=== PATIENT | female | born 1980 | race Caucasian/White ===

== ENCOUNTER 2024-07-11 10:44 | Emergency (ER) | payer OTHER, SELFPAY ==
[2024-07-11 10:47] VITALS: BP 184/117
--- NOTE | 2024-07-11 11:19 | ED.GENMED ---
History of Present Illness
General
Chief Complaint: Blood Pressure Problem
Source: patient
Exam Limitations: none
Time Seen by Provider: 07/11/24 11:08
Nursing documentation reviewed up to this point in time: agreed with
History of Present Illness
History of Present Illness:
Patient is a 44-year-old female brought [facility] and . Patient was taken to snf and her blood pressure was found to be elevated multiple times over 200s and she was sent here to the ER.
Patient presents awake alert she is very anxious she does admit to having a history of anxiety /depression/ high blood pressure and does not like taking medications. She is on Inderal 40 mg twice a day she did take it yesterday. She is very
anxious. She does complain of a headache. She denies any nausea vomiting chest pain/shortness of breath.
She is stating that she does not want anything done for her blood pressure . In addition she does not want any blood work or imaging.
Review of Systems
Review of Systems
Allergies reviewed?: Yes
All Other Systems: ROS reviewed and negative except as documented in HPI and ROS
Constitutional: Reports no symptoms
Respiratory: Reports no symptoms
Cardiac: Reports no symptoms
ABD/GI: Denies abdominal pain, nausea or vomiting
: Reports no symptoms
Musculoskeletal: Reports no symptoms
Skin: Reports no symptoms
Neurological: Reports headache
Endocrine: Reports no symptoms
Psychiatric: Reports no symptoms
Phy Exam
General Physical Exam
General Presentation: no apparent distress
General age: appears stated age
General Skin: warm and dry
General Habitus: normal
General Mental: alert
General Hydration: appears well hydrated
Cardiovascular Exam
Cardiovascular Exam: regular rate/rhythm, no murmur and normal peripheral pulses
Pulmonary Exam
Pulmonary Exam: lungs clear and no respiratory distress
Neurological Exam
Neurological Exam: alert and oriented x3
Musculoskeletal Exam
Musculoskeletal Exam: full ROM
Skin Exam
Skin Exam: normal color and warm/dry
Psychiatric Exam
Psychiatric Exam: normal mood/affect
Course
Orders/Labs/Results
Orders:
Orders
07/11/24 12:20
Propranolol [Inderal] 40 mg PO NOW STA
Vital Signs
Initial and Last Documented VS:
Initial Vital Signs
Temp Pulse Resp BP Pulse Ox
97.7 F 95 20 184/117 100
07/11/24 10:47 07/11/24 10:47 07/11/24 10:47 07/11/24 10:47 07/11/24 10:47
Last Documented Vital Signs
Temp Pulse Resp BP Pulse Ox
97.7 F 87 20 178/116 98
07/11/24 10:47 07/11/24 11:34 07/11/24 10:47 07/11/24 11:34 07/11/24 11:34
Treasury Assistant consulted with Physician
Treasury Assistant consulted with physician?: Yes
Name of Physician Consulted: DR Maldonado
MDM/Problems Addressed
MDM/Problems Addressed:
Patient is a 44-year-old female with history of hypertension noncompliant with her medications brought by [facility]. Patient was arrested and taken into custody and blood pressure was elevated, present would not except her
which is why she was sent to the ER. Patient presents awake alert she does complain of a headache however also reports she is under a lot of stress very anxious has a history of anxiety hypertension and is noncompliant with her Inderal. She
specific Inderal 40 mg twice daily only took it yesterday and takes it sporadically. She presents awake alert no acute distress hypertensive however nontachycardic afebrile.
Patient refusing CAT scan and blood work.
will give dose of oral Inderal now and reassess
1335: Patient has been sleeping comfortably. BP 143/90 HR 100 .
As documented above patient is refusing CAT scan lower however she is in no acute distress and well-appearing she does have a history of hypertension and is noncompliant however improved. I did review with patient the risks of untreated
hypertension including stroke and kidney disease etc. Case d/c w. DR Maldonado, stable for d/c to [facility] .
Chronic conditions affecting care:
htn, anxiety/depression/non compliant w/ meds.
*Critical Care Note
Total Time (30-74mins, 75-104mins- exclusive of procedures): Not Applicable
ED Attending Note
-
Portions of this chart may have been created with voice recognition software.� Occasional wrong word or��sound alike� substitutions may have occurred due to the inherent limitations of voice recognition software.
Discharge Plan
Departure
Patient Disposition: [facility]
Date of Disposition: 07/11/24
Time of Disposition: 13:46
Patient with high blood pressure during this ER visit?: Yes
Condition: Fair
Covid-19: Not Applicable
Discharge Problem:
elevated blood pressure
Instructions: High Blood Pressure (DC), BLOOD PRESSURE
Referrals:
[facility] [Family Provider] -
Activity Restrictions/Additional Instructions:
Patient is medically cleared for incarceration. Patient refused blood work and CAT scan.
Patient was given her Inderal dose 40 mg. Blood pressure 140/90 heart rate 100.
Interventions
Interventions:
*Risk Screen - Suicide Last Done: 07/11/24 10:47
*General Assessment Last Done: 07/11/24 10:47
*Neglect/Abuse Screening Last Done: 07/11/24 10:47
ED- Fall Risk Assessment Last Done: 07/11/24 11:35
*ED COVID-19 Vaccine History Last Done: 07/11/24 11:35
ED- Cardiac Assessment Last Done: 07/11/24 11:35
ED- Neurological Assessment Last Done: 07/11/24 11:35
ED- Pulmonary Assessment Last Done: 07/11/24 11:35
Discharge Date and Time
Print Language: BRITISH
[2024-07-11 11:34] VITALS: BP 178/116
[2024-07-11] MEDS: INDERAL 40 MG PO (14:08)
[2024-07-11 14:17] VITALS: BP 140/88
== END 2024-07-11 14:17 ==
LOC: EMR 10:44
PROVIDERS: EMERGENCY PHYSICIAN Student in an Organized Health Care Education/Training Program
DX: I10 Essential (primary) hypertension (principal); Z91.148 Patient's other noncompliance with medication regimen for other reason; F32.A Depression, unspecified; F41.9 Anxiety disorder, unspecified; Z65.3 Problems related to other legal circumstances
CPT/HCPCS: 99283